=== PATIENT | male | born 1980 | race Caucasian/White ===

== ENCOUNTER 2023-11-15 18:54 | Emergency (ER) | payer OTHER, SELFPAY ==
--- NOTE | 2023-11-15 19:25 | ED.GENADULT ---
HPI - General Adult General Chief complaint: Abdominal Pain Stated complaint: ? hernia lump on abd Time Seen by Provider: 11/15/23 21:36 Source: patient Mode of arrival: ambulatory Limitations: no limitations History of Present Illness HPI narrative: Patient history of umbilical hernia for some time noticed size has increased with slight tenderness prior to arrival patient does not remember lifting anything no nausea no vomiting had a normal bowel movement Related Data Allergies Allergy/AdvReac Type Severity Reaction Status Date / Time No Known Allergies Allergy Verified 11/15/23 19:27 Review of Systems Review of Systems: Yes all other systems are reviewed and are negative [facility] Social History Social History Smoked in Last 30 Days: Yes Use of substances other than those prescribed or required for medical reasons: Yes Substance Use Type: Marijuana Substance Use Frequency: Chronic Longstanding Advance Directives: No Advance Directives Information Provided: No Physical Exam ED Vital Signs: Vital Signs - 24 hr 11/15/23 19:27 11/15/23 21:34 Temperature 98.2 F Pulse Rate 81 71 Respiratory Rate 14 18 Blood Pressure 155/86 H 119/75 Pulse Oximetry 96 95 Oxygen Delivery Method Room Air Room Air BMI result Body Mass Index 34.9 Appearance: Alert. Oriented X3. No acute distress. CVS: Normal heart rate and rhythm. Pulses normal. Respiratory: No respiratory distress. Equal air entry bilateral, Abdomen: Soft small reducible umbilical hernia containing fat no signs of inflammation or infection Bowel sounds are present, no mass palpable, no CVA tenderness Skin: Skin warm and dry. Normal skin color. Normal skin turgor. Extremities: No lower extremity edema. Neuro: Oriented X 3. Course Course Course Narrative: This is a rapid medical exam: Additional HPI, ROS, PE not included below will be deferred to primary provider. Patient is a 43-year-old male presenting to the ED with complaint of mass to abdomen for the past weeks. States area has been increasing in size, and is tender, pain radiates to the right. Denies nausea, vomiting. Denies fevers. 8/10 pain with ambulation, 6 at rest. Pain is most improved with laying supine. Unable to fully evaluate in triage, will defer to primary provider. Plan: basic labs, will need full physical exam Medical Decision Making Medical Decision Making MDM Narrative: Patient has small reducible fat containing umbilical hernia which was reduced in ER patient go relieved in pain immediately feeling much better advised to follow with surgeon Lab Data MDM Lab Attestation statement: I reviewed the patient's lab results. 11/15/23 19:58 11/15/23 19:58 Labs: Lab Results 11/15/23 Range/Units 19:58 WBC 11.1 H (4.8-10.8) X10*3/uL RBC 4.83 (4.60-5.80) X10*6/uL Hgb 14.7 (14.0-18.0) g/dl Hct 43.0 (42.0-52.0) % MCV 89.0 (80.0-98.0) fL MCH 30.4 (27.0-33.0) pg MCHC 34.2 (31.0-36.0) g/dl RDW 13.7 (11.0-16.0) % Plt Count 318 (160-400) X10*3/uL MPV 9.2 L (9.4-12.4) fL Immature Gran % (Auto) 0.3 (0.0-0.4) % Neut % (Auto) 61.9 (45-73) % Lymph % (Auto) 29.8 (20-40) % Mellette % (Auto) 6.2 (2-11) % Eos % (Auto) 1.4 (0-4) % Baso % (Auto) 0.4 (0-2) % Lymph # (Auto) 3.3 (1.2-4.9) X10*3/uL Mellette # (Auto) 0.7 (0.1-1.2) X10*3/uL Eos # (Auto) 0.2 (0.0-0.4) X10*3/uL Baso # (Auto) 0.0 (0.0-0.2) X10*3/uL Abs Immat Gran (auto) 0.03 (0.00-0.03) X10*3/uL Absolute Neuts (auto) 6.9 (2.0-8.3) x10*3/uL Absolute Nucleated RBC 0.000 (0.0-0.012) X10*3/uL Nucleated RBC % (auto) 0.0 (0.0-0.2) /100WBC Sodium 142 (135-145) mmol/L Potassium 4.0 (3.3-5.1) mmol/L Chloride 109 H (96-108) mmol/L Carbon Dioxide 26 (22-29) mmol/L Anion Gap 11 L (12-20) BUN 14 (9-16) mg/dL Creatinine 0.79 (0.5-1.4) mg/dL Estim Creat Clear Calc 139.3 Estimated GFR > 60 Random Glucose 97 (60-115) mg/dL Calcium 9.5 (8.4-10.2) mg/dL Total Bilirubin 0.4 (0.0-1.0) mg/dL AST 18 (5-37) U/L ALT 23 (0-40) U/L Alkaline Phosphatase 63 (39-117) U/L Total Protein 7.3 (6.5-8.0) g/dL Albumin 4.4 (3.5-5.0) g/dL Discharge Plan Discharge Clinical Impression: Recurrent umbilical hernia Patient Disposition: Home, Self-Care Instructions: Umbilical Hernia (ED) Additional Instructions: Avoid lifting heavy weights Care as advised Follow with surgeon for repair Referrals: Oneal Mariee MD [Physician] - 2 weeks
[2023-11-15 19:27] VITALS: BP 155/86; PULSE 81; RESP 14; TEMP 36.8; O2SAT 96; BMI 34.9
[2023-11-15 20:01] LABS: MANUAL DIFF FLAG NO
[2023-11-15 20:02] LABS: Basophils Percent Auto 0.4 % (0-2); Eosinophils Absolute Auto 0.2 X10*3/uL (0.0-0.4); Eosinophils Percent Auto 1.4 % (0-4); Hemoglobin 14.7 g/dl (14.0-18.0); Imm Gran Abs Auto 0.03 X10*3/uL (0.00-0.03); Imm Gran Pct Auto 0.3 % (0.0-0.4); Lymphocytes Absolute Auto 3.3 X10*3/uL (1.2-4.9); Lymphocytes Percent Auto 29.8 % (20-40); Mean Corpuscular HGB Conc 34.2 g/dl (31.0-36.0); Mean Corpuscular Hemoglobin 30.4 pg (27.0-33.0); Mean Platelet Volume 9.2 fL (9.4-12.4); Monocytes Absolute Auto 0.7 X10*3/uL (0.1-1.2); Monocytes Percent Auto 6.2 % (2-11); Neutrophils Absolute Auto 6.9 x10*3/uL (2.0-8.3); Neutrophils Percent Auto 61.9 % (45-73); Platelet Count 318 X10*3/uL (160-400); Red Blood Count 4.83 X10*6/uL (4.60-5.80); Red Cell Distribution Width 13.7 % (11.0-16.0); White Blood Count 11.1 X10*3/uL (4.8-10.8)
[2023-11-15 20:15] LABS: Alanine Aminotransferase 23 U/L (0-40); Albumin Level 4.4 g/dL (3.5-5.0); Alkaline Phosphatase 63 U/L (39-117); Anion Gap 11 (12-20); Aspartate Amino Transferase 18 U/L (5-37); Bilirubin Total 0.4 mg/dL (0.0-1.0); Blood Urea Nitrogen 14 mg/dL (9-16); Calcium 9.5 mg/dL (8.4-10.2); Carbon Dioxide 26 mmol/L (22-29); Chloride 109 mmol/L (96-108); Creatinine Clr Calc Pharmacy 139.3; Estimated Glomerular Filt Rate > 60; Glucose Random 97 mg/dL (60-115); Sodium 142 mmol/L (135-145); Total Protein 7.3 g/dL (6.5-8.0)
[2023-11-15 21:34] VITALS: BP 119/75; PULSE 71; RESP 18; O2SAT 95
== END 2023-11-15 23:17 | disposition home or self-care (01) ==
PROVIDERS: Registered Nurse Emergency; Emergency Provider Internal Medicine
DX: K42.9 Umbilical hernia without obstruction or gangrene (principal)
CPT/HCPCS: 36415; 80053; 85025; 99283; 99284

== ENCOUNTER 2023-11-24 15:23 | Outpatient (AMB) | payer OTHER, SELFPAY ==
--- NOTE | 2023-11-24 15:23 | MHC.OFFVIS ---
Intake Vital Signs 11/24/23 15:24 Height 5 ft 7 in Weight 222 lb 10.67 oz BMI 34.9 BP 136/80 Blood Pressure Location Rt brachial Position Sitting Pulse 75 Intake Visit Reasons: umbilical hernia Intake Note: This patient [place] [facility] [place] an umbilical her[place]. Patient c/o; reports no bulge, reducible, reports no pain at this time. Senior Commercial Loan Officer Required: No Accompanied by: Family/Other Allergies No Known Allergies Allergy (Verified 11/24/23 15:32) Medication List - Last Reconciled 11/24/23 by Oneal Mariee MD No Known Home Meds HPI umbilical hernia HPI Details 43-year-old male referred for an umbilical hernia. He has noticed this reducible lump on his umbilicus for about 4 months. He says that this was painful about 2 weeks ago and he had to go to the emergency room. He says the ER doctor reduce this hernia at that time. He feels well currently and denies any complaints. He denies any significant medical problems. ON LICENSE OF [facility] Medical History (Updated 11/24/23 @ 15:48 by Oneal Mariee MD) Umbilical hernia Social History Substance Use Type: Marijuana Review of Systems Const Denies chills and Denies fever(s) Card Denies chest pain, Denies dyspnea and Denies dyspnea on exertion Resp Denies cough, Denies dyspnea and Denies dyspnea on exertion GI Denies hematochezia and Denies change in bowel habits Denies hematuria and Denies difficulty urinating Musc Denies back pain and Denies limited range of motion Neuro Denies focal weakness and Denies convulsions Psych Denies depression and Denies mood swings Physical Exam Vital Signs: Last Vital Signs Pulse 75 11/24/23 15:24 BP 136/80 11/24/23 15:24 BMI result Body Mass Index 34.9 Const General: comfortable and no acute distress Orientation/consciousness: patient oriented x3 Neck Neck: Yes no lymphadenopathy Resp Auscultation: clear to auscultation bilaterally Cardio Rhythm: regular rhythm GI Other: Palpable umbilical hernia, reducible, about 2 cm defect, nontender Palpation (GI): Soft to palpation, nontender and no guarding Neuro General: patient oriented x3 Assessment & Plan Assessment & Plan (1) Umbilical hernia: Code(s): K42.9 - Umbilical hernia without obstruction or gangrene Plan: He has an umbilical hernia, about 2 cm defect, reducible. He wants to proceed with repair. I explained to him the technique of repair with possible mesh. I reviewed the risks including but not limited to bleeding, infections, bowel injury, recurrence, postop pain, as well as the benefits and alternatives. I discussed with him what to expect postoperatively. He understands risk of strangulation and incarceration with non repair He says he wants to proceed with repair of the umbilical hernia with possible mesh. Coding Level of Care Code New Pt Level 3 (78042) Diagnoses Umbilical hernia K42.9
[2023-11-24 15:24] VITALS: BP 136/80; PULSE 75; BMI 34.9
== END 2023-11-24 15:46 | disposition home or self-care (01) ==
PROVIDERS: Visit Provider Surgery
DX: K42.9 Umbilical hernia without obstruction or gangrene (principal)
CPT/HCPCS: 99203

== ENCOUNTER → 2023-11-24 15:23 | Outpatient (BNVA) | payer OTHER, SELFPAY | PROVIDERS: Visit Provider Surgery | DX: K42.9 Umbilical hernia without obstruction or gangrene (principal) | CPT/HCPCS: 99202 ==

== ENCOUNTER 2023-12-27 09:53 | Day surgery (SDC) | payer OTHER, SELFPAY ==
[2023-12-22 16:26] VITALS: BMI 34.5
--- NOTE | 2023-12-26 09:08 | HO.ANESPROP2 ---
Documented by User: Mary Alice Tan NP 12/26/23 09:09 HPI - Anesthesia Eval Consult details Narrative: 43yo M for Hernia Umbilical Reducible,with possible mesh PMFSH Active Problems Active Problems: All Active Problems Umbilical hernia (Acute) Past Medical History Medical History (Updated 12/22/23 @ 16:33 by Evelin Frazier) Monorchism Umbilical hernia Surgical History Surgical History (Updated 12/22/23 @ 16:26 by Evelin Frazier) History of testicular surgery Social History Social History Patient Tobacco Use Status: Former Tobacco user Quit Date: 2016 Tobacco use type: Cigarette Years Smoked: 15 Smoked in Last 30 Days: No Use of substances other than those prescribed or required for medical reasons: Yes Substance Use Type: Marijuana Substance Use Type Other:: vapes nicotine daily Substance Use Frequency: Occasionally Are you DNR?: No Advance Directives: No Advance Directives Information Provided: Yes Advance Directives on File: No Recently lost weight without trying: No How much weight loss: Not applicable Eating poorly because of decreased appetite: No Nutrition screen score: 0 Nutrition Risks: No Nutritional Risk Poor oral hygiene: Yes (missing teeth) Meds Allergies Allergy/AdvReac Type Severity Reaction Status Date / Time No Known Allergies Allergy Verified 12/22/23 16:24 Home Medications ?Medication ?Instructions ?Recorded ?Confirmed ?Last Taken ?Type ibuprofen 200 mg PO DAILY PRN Headache 12/22/23 12/27/23 12/23/23 History Exam Height,Weight and Vital Signs: Height 5 ft 7 in Weight 99.79 kg Pertinent Lab Results Pertinent Lab Results: Laboratory Tests 11/15/23 19:58 WBC 11.1 H Hgb 14.7 Hct 43.0 Plt Count 318 Sodium 142 Potassium 4.0 Chloride 109 H Carbon Dioxide 26 BUN 14 Creatinine 0.79 Assessment and Plan Assessment Anesthesia Assessment: Chart Reviewed Documented by User: Jacob Alexandre MD 12/27/23 11:17 PMFSH Past Medical History Medical History (Updated 12/22/23 @ 16:33 by Evelin Frazier) Monorchism Umbilical hernia Family History Family history of problems with anesthesia: No Surgical History Surgical History (Updated 12/22/23 @ 16:26 by Evelin Frazier) History of testicular surgery History of Problems with Anesthesia: No Social History Social History Patient Tobacco Use Status: Former Tobacco user Quit Date: 2016 Tobacco use type: Cigarette Years Smoked: 15 Smoked in Last 30 Days: No Use of substances other than those prescribed or required for medical reasons: Yes Substance Use Type: Marijuana Substance Use Type Other:: vapes nicotine daily Substance Use Frequency: Occasionally Are you DNR?: No Advance Directives: No Advance Directives Information Provided: Yes Advance Directives on File: No Recently lost weight without trying: No How much weight loss: Not applicable Eating poorly because of decreased appetite: No Nutrition screen score: 0 Nutrition Risks: No Nutritional Risk Poor oral hygiene: Yes (missing teeth) Meds Allergies Allergy/AdvReac Type Severity Reaction Status Date / Time No Known Allergies Allergy Verified 12/22/23 16:24 Home Medications ?Medication ?Instructions ?Recorded ?Confirmed ?Last Taken ?Type ibuprofen 200 mg PO DAILY PRN Headache 12/22/23 12/27/23 12/23/23 History Exam Airway Mallampati Class: II TM Dist: >3cm Neck ROM: Full Loose/Missing/Broken Teeth: Yes and Upper Heart: ok Lungs: ok Assessment and Plan Assessment Anesthesia Assessment: Anesthesia Plan Discussed Final Anesthetic Review Family History of Problems with Anesthesia: No History of Problems with Anesthesia: No NPO: Yes ASA Class: II Final Preanesthetic Review: No Changes in Pt Med Stat, Meds/Allgs Chart Reviewed, Consent Obtained/Reviewed and Anes Risks/Benef Reviewed Patient Risk: Low Procedure Risk: Low Anesthetic Plan Anesthetic Plan: GA and Agree w/ Assess. and Plan Disposition: Standard PACU
[2023-12-27] VITALS (7 sets, daily range): BP systolic 102–120; BP diastolic 69–80; PULSE 62–97; RESP 14–18; TEMP 36.5–37; O2SAT 94–97
[2023-12-27] MEDS: Lactated Ringers 1,000 ML 100 ML IVCONT (10:30)
--- NOTE | 2023-12-27 10:46 | MHC.SHP ---
Pre-Procedural Eval Section A - 24 Hr Update-Section A only Date of Service: 12/27/23 Section B - Complete if H&P > 30 days Chief Complaint: Umbilical hernia without obstruction or gangrene Details of Present Illness: Reducible umbilical hernia Relevant Social History: None Present Medications: see Short Stay Collaborative assessment Medical History: No relevant PMH Allergies: Allergies Allergy/AdvReac Type Severity Reaction Status Date / Time No Known Allergies Allergy Verified 12/22/23 16:24 Review of Systems Sugical H&P ROS: Negative: Constitution, Cardiovascular, Respiratory, Neurological, Psychiatric, Hem-Onc, Allergic/Immunologic, Gastrointestinal, Genitourinary, Musculoskeletal, Integumentary, Endocrine and Eyes/Ears/Nose/Throat Exam Surgical H&P Exam: Normal: HEENT, Normal: Heart, Normal: Lungs, Normal: Extremities, Normal: Skin and Normal: Neurological and Significant Findings: Abdomen (Reducible umbilical hernia about 2 cm) Plan Diagnosis/Plan: Unchanged I have reviewed the history and physical and performed a pertinent physical examination on my patient. No changes have occurred unless specified. Time Spent With Patient Time: Total time managing care of this patient today ____ minutes.
--- NOTE | 2023-12-27 11:49 | W.PM.OPN ---
Operative Note Operative Note Date of Service: 12/27/23 Narrative: Preop diagnosis: Supraumbilical hernia Postop diagnosis: The same Procedure: Repair of supraumbilical hernia with Ventralex mesh Surgeon: Oneal Mariee MD paraprofessional education assistant: NAA Pollard The patient is a 43-year-old male with a reducible mass on the area above the umbilicus consistent with a supraumbilical hernia. He understood the technique of the planned procedure as well as the risks, benefits, and alternatives. He was brought to the operating room and placed supine under general anesthesia via laryngeal mask airway. The abdomen was prepped and draped in the usual sterile fashion. A surgical time-out was done. The patient received cefazolin 2 g IV preoperatively I inflated the planned line of incision with lidocaine 1%. I made a short supraumbilical longitudinal incision using a blade 15. This was carried down through the full-thickness of the skin and subcutaneous fat with electrocautery. I visualize the hernia which contained fat. I sharply dissected down to the base of the hernia and gently define the fascial edge. I the hernia contents from the fascial edge and I was able to reduces easily. The fascial defect was about 1.3 cm. I used a small Ventralex mesh to reinforce the fascial opening. I flattened the mesh under the fascia. I secured the Prolene straps of the mesh to both sides of the fascia with Prolene 2 sutures. I trimmed the Prolene straps flush on the fascial level I closed the fascial defect with a [id number] Maxon 1 stitch as well We irrigated. Once hemostasis was confirmed, I reapposed the subcutaneous layer with Polysorb 3-0 simple interrupted sutures. Skin closure was achieved with Polysorb 4-0 subcuticular running sutures. Steri-Strips and dressings were applied The incision was infiltrated with Marcaine 0.5% for postop analgesia The patient tolerated the procedure well. There were no immediate complications. Initial and final counts of sponges and instruments were correct. Estimated blood loss was about 5 cc The patient was extubated without difficulty and transferred to the recovery room with stable vital signs.
[2023-12-27] MEDS: Acetaminophen 325 MG TABLET 650 MG PO (12:18)
== END 2023-12-27 13:17 | disposition home or self-care (01) ==
PROVIDERS: Visit Provider Surgery
PROC: (CPT 49591; principal; 2023-12-27 14:00)
DX: K43.9 Ventral hernia without obstruction or gangrene (principal); Q55.0 Absence and aplasia of testis; Z98.890 Other specified postprocedural states; Z87.891 Personal history of nicotine dependence; Z79.1 Long term (current) use of non-steroidal anti-inflammatories (NSAID)
CPT/HCPCS: 49591; C1781; J0665; J0690; J1885; J2405; J2704; J3010

== ENCOUNTER → 2023-12-27 09:53 | Outpatient (BNV) | payer OTHER, SELFPAY | PROVIDERS: Visit Provider Surgery | DX: K42.9 Umbilical hernia without obstruction or gangrene (principal) | CPT/HCPCS: 49591 ==

== ENCOUNTER 2024-01-09 11:16 | Outpatient (AMB) | payer OTHER, SELFPAY ==
--- NOTE | 2024-01-09 11:20 | A.OFFVIS_ITS ---
Intake Visit Reasons: S/P umbilical hernia Intake Note: This patient presents for a post-op assessment status post repair of supraumbilical hernia with ventralex mesh. Pt c/o; reports no complaints. Quality Process Lead Required: No Accompanied by: Self / Same As Patient Allergies No Known Allergies Allergy (Verified 01/09/24 11:27) HPI HPI S/P umbilical hernia: Details: He underwent repair of an umbilical hernia with Ventralex mesh last 12/27/2023. He tolerated procedure well. He currently denies significant complaints. He states that he feels well overall. [facility] Medical History Monorchism Umbilical hernia Surgical History Hx of hernia repair (~12/27/23) History of testicular surgery Social History Patient Tobacco Use Status: Former Tobacco user Quit Date: 2016 Tobacco use type: Cigarette Years Smoked: 15 Substance Use Type: Marijuana Review of Systems Const Denies chills and Denies fever(s) Card Denies chest pain, Denies dyspnea and Denies dyspnea on exertion Resp Denies cough, Denies dyspnea and Denies dyspnea on exertion GI Denies hematochezia and Denies change in bowel habits Denies hematuria and Denies difficulty urinating Musc Denies back pain and Denies limited range of motion Neuro Denies focal weakness and Denies convulsions Psych Denies depression and Denies mood swings Physical Exam Const General: comfortable and no acute distress Resp Effort & Inspection: normal respiratory effort GI Other: Umbilical hernia repair site is well healed, infected, repair intact Assessment & Plan Assessment & Plan (1) Umbilical hernia: Code(s): K42.9 - Umbilical hernia without obstruction or gangrene Category: Medical Plan: Status post repair with mesh. He is doing very well. The repair site is intact. The incisions well healed. I advised him to avoid lifting of anything more than 20 lb for at least 2 more weeks. He can otherwise follow up on a p.r.n. basis.
== END 2024-01-09 11:43 | disposition home or self-care (01) ==
LOC: HO.HGS 11:16
PROVIDERS: Visit Provider Surgery
DX: K42.9 Umbilical hernia without obstruction or gangrene (principal)
CPT/HCPCS: 99212

== ENCOUNTER → 2024-01-09 11:16 | Outpatient (BNVA) | payer OTHER, SELFPAY | PROVIDERS: Visit Provider Surgery | DX: K42.9 Umbilical hernia without obstruction or gangrene (principal) | CPT/HCPCS: 99212 ==